=== PATIENT | male | born 1930 | race Caucasian/White ===

== ENCOUNTER 2017-03-24 13:54 | Inpatient (IN) | payer MEDICARE, OTHER ==
[2017-03-24] MEDS ORDERED: Dextrose 5%-0.9% NaCl 1,000 ML IV SCH (14:15)
--- NOTE | 2017-03-24 14:41 | CR ---
Chest 1V Frontal HISTORY: Low oxygen saturation. COMPARISON: 05/02/2015. FINDINGS: Moderate cardiomegaly. Mild to moderate congestive change. Bilateral pleural effusions. Bas ilar atelectasis or infiltrate also present. Recommend follow-up films confirm improvement or resolution of these findings.
[2017-03-24] MEDS ORDERED: LORazepam ORAL Concentrate 1MG/0.5ML U/D SL PRN (16:27)
--- NOTE | 2017-03-24 19:42 | PCM.HP ---
H&P History of Present Illness - General Date of Service: 03/24/17 Admit Problem/Dx: Admission Diagnosis/Problem Admission Diagnosis/Problem Dehydration Source of Information: Family History Limitations: Reports: Altered Mental Status - History of Present Illness Initial Comments - Free Text/Narative: 3 days ago he begun having problems breathing. The insurance company woudn't pay for the inhaler until the first of the month so Jayleen, Joseph' His s bought the meds herself. His condition did not improve his breathing and gradually became worse with respiratory distress. She came into the office today. The O2 sat varied from 79% to 95% according to his breathing frequency. Onset of Symptoms: Reports: Gradual Duration of Symptoms: Reports: Day(s): - Related Data Allergies/Adverse Reactions: Allergies Allergy/AdvReac Type Severity Reaction Status Date / Time wasps Allergy Cannot Uncoded 08/05/14 11:04 Remember Home Medications: Home Meds Alendronate [Fosamax] 70 mg PO WEEKLY 08/05/14 [History] Primidone 25 mg PO DAILY 08/05/14 [History] Rivaroxaban [Xarelto] 10 mg PO DAILY 08/05/14 [History] Budesonide/Formoterol [Symbicort 160-4.5 Mcg Inhaler] 1 puff IH DAILY 08/08/14 [ History] Acetaminophen [Tylenol] 650 mg PO Q4H PRN 03/24/17 [History] Calcium Carbonate [Tums] 500 mg PO TID 03/24/17 [History] Cholecalciferol (Vitamin D3) [Vitamin D3] 2,000 unit PO QAM 03/24/17 [History] Dextran 70/Hypromellose [Artificial Tears] 1 drop OP Q2H PRN 03/24/17 [History] Dextran 70/Hypromellose [Artificial Tears] 1 each OP DAILY 03/24/17 [History] Magnesium Hydroxide [Milk of Magnesia] 30 ml PO DAILY PRN 03/24/17 [History] Polyethylene Glycol 3350 [MiraLAX] 1 pkt PO Q48H 03/24/17 [History] Triamcinolone Acetonide [Triamcinolone Acetonide 0.5%] 1 applic TOP Q12H PRN [History] Past Medical History HEENT History: Reports: Other (See Below) Other HEENT History: Dry eye syndrome Cardiovascular History: Reports: Afib, Hypertension Respiratory History: Reports: COPD Musculoskeletal History: Reports: Osteoporosis, Other (See Below) Other Musculoskeletal History: muscle weakness; hx falling; tremor Psychiatric History: Reports: Anxiety, Dementia, Depression, Other (See Below) Other Psychiatric History: 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; confusionial arousals Oncologic (Cancer) History: Reports: Prostate - Past Surgical History Other Male Surgeries/Procedures: malignant neoplasm of prostate Social & Family History - Tobacco Use Smoking Status *Q: Former Smoker Years of Tobacco use: 8 Used Tobacco, but Quit: Yes Month Tobacco Last Used: 1935 Second Hand Smoke Exposure: No - Caffeine Use Caffeine Use: Reports: Coffee - Alcohol Use Days Per Week of Alcohol Use: 0 - Recreational Drug Use Recreational Drug Use: No H&P Review of Systems - Review of Systems: Review Of Systems: See Below General: Reports: Weakness HEENT: Reports: No Symptoms Pulmonary: Reports: Other (irregular respirations) Musculoskeletal: Reports: Muscle Stiffness Skin: Reports: No Symptoms Exam - Exam Exam: See Below - Vital Signs Vital Signs: Last Vital Signs Temp 97.3 F 03/24/17 19:12 Pulse 91 03/24/17 19:12 Resp 27 H 03/24/17 19:12 BP 117/65 03/24/17 19:12 Pulse Ox 92 L 03/24/17 19:12 Weight: 139 lb - Exam General: Lethargic HEENT: PERRLA, Conjunctiva Clear Lungs: Clear to Auscultation Cardiovascular: Irregular Rhythm GI/Abdominal Exam: Normal Bowel Sounds, Soft, No Distention Extremities: No Pedal Edema Peripheral Pulses: 1+: Radial (L), Radial (R) Skin: Warm, Dry, Intact Neuro Extensive - Mental Status: Inattentive, Opens Eyes to Commands Neuro Extensive - Motor, Sensory, Reflexes: Normal Reflexes Psychiatric: Other (lehergic response to verbal stimuli) - Patient Data Lab Results Last 24 hrs: Laboratory Results - last 24 hr 03/24/17 03/24/17 03/24/17 Range/Units 14:06 14:06 14:06 WBC 11.9 H (4.5-11.0) K/uL RBC 3.75 L (4.30-5.90) M/uL Hgb 10.1 L D (12.0-15.0) g/dL Hct 32.3 L (40.0-54.0) % MCV 86 (80-98) fL MCH 27 (27-31) pg MCHC 31 L (32-36) % Plt Count 350 (150-400) K/uL Neut % (Auto) 86 H (36-66) % Lymph % (Auto) 6 L (24-44) % [place] % (Auto) 7 H (2-6) % Eos % (Auto) 0 L (2-4) % Baso % (Auto) 0 (0-1) % Sodium 141 (140-148) mmol/L Potassium 5.2 (3.6-5.2) mmol/L Chloride 107 (100-108) mmol/L Carbon Dioxide 25 (21-32) mmol/L Anion Gap 9.1 (5.0-14.0) mmol/L BUN 47 H D (7-18) mg/dL Creatinine 1.7 H (0.8-1.3) mg/dL Est Cr Clr Drug Dosing TNP Estimated GFR (MDRD) 38 L (>60) Glucose 124 H (74-106) mg/dL Calcium 9.1 (8.5-10.1) mg/dL Total Bilirubin 0.2 D (0.2-1.0) mg/dL AST 37 (15-37) U/L ALT 15 (12-78) U/L Alkaline Phosphatase 92 (46-116) U/L Total Protein 8.6 H (6.4-8.2) g/dL Albumin 2.1 L (3.4-5.0) g/dL Globulin 6.5 H (2.3-3.5) g/dL Albumin/Globulin Ratio 0.3 L (1.2-2.2) Urine Color Yellow Urine Appearance Cloudy Urine pH 5.0 (4.5-8.0) Ur Specific [place] 1.015 (1.008-1.030) Urine Protein 30 H (NEGATIVE) mg/dL Urine Glucose (UA) Normal (NEGATIVE) mg/dL Urine Ketones Negative (NEGATIVE) mg/dL Urine Occult Blood Trace (NEGATIVE) Urine Nitrite Negative (NEGAITVE) Urine Bilirubin Negative (NEGATIVE) Urine Urobilinogen Normal (NORMAL) mg/dL Ur Leukocyte Esterase Large (NEGATIVE) Urine RBC 5-10 H (0-5) Urine WBC Packed H (0-5) Ur Epithelial Cells Moderate Amorphous Sediment Many Urine Bacteria Moderate Urine Mucus Moderate Result Diagrams: 03/24/17 14:06 03/24/17 14:06 *Q Meaningful Use (ADM) - VTE *Q VTE Criteria *Q: - Stroke *Q Stroke Criteria *Q: - AMI *Q AMI Criteria *Q: Problem List Initiated/Reviewed/Updated: Yes Orders Last 24hrs: Active Orders 24 hr Category Date Time Status Admission Status [Patient Status] [ADT] Routine ADT 03/24/17 16:32 Active Cardiac Monitoring [RC] .As Directed Care 03/24/17 14:06 Active Insert Paul Catheter [Insert Urinary Catheter] [OM.PC] Care 03/24/17 16:45 Ordered Q24H Overnight Pulse Oximetry [RC] Click to Edit Care 03/24/17 14:07 Active Urinary Catheter Assessment [RC] ASDIRECTED Care 03/24/17 16:32 Active Regular Diet [DIET] Diet 03/24/17 Dinner Active CULTURE URINE [RM] Routine Lab 03/24/17 15:44 Received LORazepam [Ativan ORAL Concentrate 1MG/0.5 ML U/D] Med 03/24/17 16:27 Active 0.5 mg SL Q6H PRN cefTRIAXone [Rocephin] 1 gm Med 03/24/17 19:45 Ordered Sodium Chloride 0.9% [Normal Saline] 50 ml IV Q24H Pulse Oximetry Continuous Monitoring [OM.PC] Routine Oth 03/24/17 14:06 Ordered Resuscitation Status Routine Resus Stat 03/24/17 14:06 Ordered Medication Orders Ceftriaxone Sodium 1 gm/ (Sodium Chloride) 50 mls @ 100 mls/hr IV Q24H [facility] Lorazepam (Ativan Oral Concentrate 1mg/0.5 Ml U/D) 0.5 mg SL Q6H PRN PRN Reason: Anxiety Last Admin: 03/24/17 16:51 Dose: 0.5 mg Assessment/Plan Comment:: Assessment/Plan: #1. Failure to thrive: Will start IV fluids. Blood work and CXR pending, #2. UI: Urine showed evidence of a UTI will treat with Rocephin. #3. Atrial Fib #4. History of Prostate CA #5. History of mild dementia. #6. History of COPD stable presently #7. History of HTN Prognosis is grave.
[2017-03-24] MEDS ORDERED: cefTRIAXone 1 GM in Sodium Chloride 0.9% 50 ML IV SCH (20:00)
[2017-03-24] MEDS: LORazepam ORAL Concentrate 1MG/0.5ML U/D SL PRN ×2 (20:17→22:23)
[2017-03-24] MEDS: Morphine 10 MG/0.5 ML Oral Syringe PO PRN ×2 (20:18→20:57)
[2017-03-25] MEDS: Morphine 10 MG/0.5 ML Oral Syringe PO PRN ×8 (00:05→22:37)
[2017-03-25] MEDS ORDERED: Atropine Sulfate Ophth 2 ML Drops SL PRN (14:35)
[2017-03-25 15:36] VITALS: BP 110/73
--- NOTE | 2017-03-25 19:07 | PCM.PN ---
- General Info Date of Service: 03/25/17 Functional Status: Reports: Pain Controlled (semi-comatose terminal) - Patient Data Vitals - Most Recent: Last Vital Signs Temp 98.3 F 03/25/17 15:35 Pulse 103 H 03/25/17 15:35 Resp 20 03/25/17 15:35 BP 110/73 03/25/17 15:35 Pulse Ox 94 L 03/25/17 15:35 Weight - Most Recent: 138 lb 15.988 oz I&O - Last 24 Hours: Intake & Output 03/25/17 03/25/17 03/25/17 06:59 14:59 22:59 Intake Total 235 Output Total 500 200 Balance -265 -200 Med Orders - Current: Current Medications Atropine Sulfate (Atropine 1%) 0 ml SL Q1H PRN PRN Reason: SECRETIONS Lorazepam (Ativan Oral Concentrate 1mg/0.5 Ml U/D) 0.5 - 1 mg SL Q2H PRN PRN Reason: Anxiety Last Admin: 03/24/17 22:23 Dose: 1 mg Morphine Sulfate (Morphine 10 Mg/0.5 Ml Oral Syringe) 5 - 10 mg PO Q2H PRN PRN Reason: pain/SOB Last Admin: 03/25/17 18:37 Dose: 10 mg Discontinued Medications Dextrose/Sodium Chloride (Dextrose 5%-Normal Saline) 1,000 mls @ 125 mls/hr IV ASDIRECTED [facility] Ceftriaxone Sodium 1 gm/ (Sodium Chloride) 50 mls @ 100 mls/hr IV Q24H [facility] Last Admin: 03/24/17 20:22 Dose: 100 mls/hr Lorazepam (Ativan Oral Concentrate 1mg/0.5 Ml U/D) 0.5 mg SL Q6H PRN PRN Reason: Anxiety Last Admin: 03/24/17 16:51 Dose: 0.5 mg - Exam Cardiovascular: Irregular Rhythm - Problem List Review Problem List Initiated/Reviewed/Updated: Yes - My Orders Last 24 Hours: My Active Orders 03/24/17 19:47 LORazepam [Ativan ORAL Concentrate 1MG/0.5 ML U/D] 0.5 - 1 mg SL Q2H PRN 03/24/17 19:48 Morphine [Morphine 10 MG/0.5 ML Oral Syringe] 5 - 10 mg PO Q2H PRN 03/25/17 14:35 Atropine Sulfate [Atropine 1%] 0 ml SL Q1H PRN 03/25/17 14:37 Resuscitation Status Routine - Plan Plan:: Assessment/Plan: #1. Failure to thrive: iIV were stopped. keeping in comfortable. #2. UTI: Urine showed evidence of a UTI #3. Atrial Fib #4. History of Prostate CA #5. History of mild dementia. #6. History of COPD stable presently #7. History of HTN Prognosis is terminal DNR-DNI
[2017-03-26] MEDS: Morphine 10 MG/0.5 ML Oral Syringe PO PRN ×2 (01:04→04:55)
[2017-03-26] MEDS: LORazepam ORAL Concentrate 1MG/0.5ML U/D SL PRN (05:19)
--- NOTE | 2017-03-26 07:23 | PCM.PN ---
- General Info Date of Service: 03/26/17 Subjective Update: He at 6:59 this morning - Patient Data Vitals - Most Recent: Last Vital Signs Temp 98.3 F 03/25/17 15:35 Pulse 103 H 03/25/17 15:35 Resp 25 H 03/25/17 22:42 BP 110/73 03/25/17 15:35 Pulse Ox 94 L 03/25/17 15:35 Weight - Most Recent: 138 lb 15.988 oz I&O - Last 24 Hours: Intake & Output 03/25/17 03/26/17 03/26/17 22:59 06:59 14:59 Output Total 200 Balance -200 Dominik Results Last 24 Hours: Microbiology 03/24/17 15:44 Urine Culture - Preliminary Urine, Paul Cath (Indwelling) Med Orders - Current: Current Medications Atropine Sulfate (Atropine 1%) 0 ml SL Q1H PRN PRN Reason: SECRETIONS Last Admin: 03/25/17 22:38 Dose: 4 drop Lorazepam (Ativan Oral Concentrate 1mg/0.5 Ml U/D) 0.5 - 1 mg SL Q2H PRN PRN Reason: Anxiety Last Admin: 03/26/17 05:19 Dose: 1 mg Morphine Sulfate (Morphine 10 Mg/0.5 Ml Oral Syringe) 5 - 10 mg PO Q2H PRN PRN Reason: pain/SOB Last Admin: 03/26/17 04:55 Dose: 10 mg Discontinued Medications Dextrose/Sodium Chloride (Dextrose 5%-Normal Saline) 1,000 mls @ 125 mls/hr IV ASDIRECTED [facility] Ceftriaxone Sodium 1 gm/ (Sodium Chloride) 50 mls @ 100 mls/hr IV Q24H [facility] Last Admin: 03/24/17 20:22 Dose: 100 mls/hr Lorazepam (Ativan Oral Concentrate 1mg/0.5 Ml U/D) 0.5 mg SL Q6H PRN PRN Reason: Anxiety Last Admin: 03/24/17 16:51 Dose: 0.5 mg - Problem List Review Problem List Initiated/Reviewed/Updated: Yes - My Orders Last 24 Hours: My Active Orders 03/25/17 14:35 Atropine Sulfate [Atropine 1%] 0 ml SL Q1H PRN 03/25/17 14:37 Resuscitation Status Routine - Plan Plan:: Assessment/Plan: #1. at 6:59 this morning. He had a history of cancer of the prostate with mets, elevated proteins and Failure to thrive. Chemo therapy was stopped 3 years ago and no further investigations was requested. He also had Atrial Fib, mild dementia, COPD and HTN
--- NOTE | 2017-03-26 07:29 | PCM.DCSUM1 ---
Discharge Summary - Hospital Course HPI Initial Comments: Admitted in a weakness condition with respiratory failure and failure to thrive. No code was requested by the and the family was called. - Discharge Data Discharge Date: 03/26/17 Discharge Disposition: Home, Self-Care 01 Event(s) Leading to Patient's *Q: at 6:59 03/26/2017 He had a history of cancer of the prostate with mets, elevated proteins and Failure to thrive. Chemo therapy was stopped 3 years ago and no further investigations was requested. He also had Atrial Fib, mild dementia, COPD and HTN Condition: - Discharge Plan Home Medications: Home Meds Alendronate [Fosamax] 70 mg PO WEEKLY 08/05/14 [History] Primidone 25 mg PO DAILY 08/05/14 [History] Rivaroxaban [Xarelto] 10 mg PO DAILY 08/05/14 [History] Budesonide/Formoterol [Symbicort 160-4.5 Mcg Inhaler] 1 puff IH DAILY 08/08/14 [ History] Acetaminophen [Tylenol] 650 mg PO Q4H PRN 03/24/17 [History] Calcium Carbonate [Tums] 500 mg PO TID 03/24/17 [History] Cholecalciferol (Vitamin D3) [Vitamin D3] 2,000 unit PO QAM 03/24/17 [History] Dextran 70/Hypromellose [Artificial Tears] 1 drop OP Q2H PRN 03/24/17 [History] Dextran 70/Hypromellose [Artificial Tears] 1 each OP DAILY 03/24/17 [History] Magnesium Hydroxide [Milk of Magnesia] 30 ml PO DAILY PRN 03/24/17 [History] Polyethylene Glycol 3350 [MiraLAX] 1 pkt PO Q48H 03/24/17 [History] Triamcinolone Acetonide [Triamcinolone Acetonide 0.5%] 1 applic TOP Q12H PRN [History] - Discharge Summary/Plan Comment Discharge Summary/Plan Comment: at 6:59 this morning. He had a history of cancer of the prostate with mets, elevated proteins and Failure to thrive. Chemo therapy was stopped 3 years ago and no further investigations was requested. He also had Atrial Fib , mild dementia, COPD and HTN - Patient Data Vitals - Most Recent: Last Vital Signs Temp 98.3 F 03/25/17 15:35 Pulse 103 H 03/25/17 15:35 Resp 25 H 03/25/17 22:42 BP 110/73 03/25/17 15:35 Pulse Ox 94 L 03/25/17 15:35 Weight - Most Recent: 138 lb 15.988 oz I&O - Last 24 hours: Intake & Output 03/25/17 03/26/17 03/26/17 22:59 06:59 14:59 Output Total 200 Balance -200 [facility] Results - Last 24 hrs: Microbiology 03/24/17 15:44 Urine Culture - Preliminary Urine, Paul Cath (Indwelling) Med Orders - Current: Current Medications Atropine Sulfate (Atropine 1%) 0 ml SL Q1H PRN PRN Reason: SECRETIONS Last Admin: 03/25/17 22:38 Dose: 4 drop Lorazepam (Ativan Oral Concentrate 1mg/0.5 Ml U/D) 0.5 - 1 mg SL Q2H PRN PRN Reason: Anxiety Last Admin: 03/26/17 05:19 Dose: 1 mg Morphine Sulfate (Morphine 10 Mg/0.5 Ml Oral Syringe) 5 - 10 mg PO Q2H PRN PRN Reason: pain/SOB Last Admin: 03/26/17 04:55 Dose: 10 mg Discontinued Medications Dextrose/Sodium Chloride (Dextrose 5%-Normal Saline) 1,000 mls @ 125 mls/hr IV ASDIRECTED [facility] Ceftriaxone Sodium 1 gm/ (Sodium Chloride) 50 mls @ 100 mls/hr IV Q24H [facility] Last Admin: 03/24/17 20:22 Dose: 100 mls/hr Lorazepam (Ativan Oral Concentrate 1mg/0.5 Ml U/D) 0.5 mg SL Q6H PRN PRN Reason: Anxiety Last Admin: 03/24/17 16:51 Dose: 0.5 mg *Q Meaningful Use (DIS) - VTE *Q VTE Criteria *Q: - Stroke *Q Stroke Criteria *Q: - AMI *Q AMI Criteria *Q:
== END 2017-03-26 09:18 | disposition expired | DRG 189 ==
LOC: JP.MS 13:54 → OBSVTOIN 16:32
PROVIDERS: ADMIT Internal Medicine; ATTEND Internal Medicine
DX: J96.90 Respiratory failure, unspecified, unspecified whether with hypoxia or hypercapnia (principal); C79.9 Secondary malignant neoplasm of unspecified site; N39.0 Urinary tract infection, site not specified; R62.7 Adult failure to thrive; I10 Essential (primary) hypertension; I48.91 Unspecified atrial fibrillation; J44.9 Chronic obstructive pulmonary disease, unspecified; Z87.891 Personal history of nicotine dependence; Z79.01 Long term (current) use of anticoagulants; Z85.46 Personal history of malignant neoplasm of prostate; H04.129 Dry eye syndrome of unspecified lacrimal gland; Z92.21 Personal history of antineoplastic chemotherapy; Z91.030 Bee allergy status; Z66 Do not resuscitate; Z51.5 Encounter for palliative care; F03.90 Unspecified dementia, unspecified severity, without behavioral disturbance, psychotic disturbance, mood disturbance, and anxiety
CPT/HCPCS: 36415; 71010; 71010-26; 80053; 81001; 85025; 87086; 87088; A9270-GY; J0696; J7050